=== PATIENT | female | born 1990 | race Caucasian/White ===

== ENCOUNTER 2020-06-05 08:11 | Outpatient (CLI) | payer OTHER ==
[2020-06-05 17:33] LABS: SARS-CoV-2 MS2 Positive; SARS-CoV-2 N Gene Negative; SARS-CoV-2 S Gene Negative; SARS-CoV-2 by NAA Not Detected (NotDetected); SARS-CoV-2 orf1ab Negative
== END 2020-06-05 08:12 | disposition home or self-care (01) ==
LOC: LABBT 08:11
PROVIDERS: ATTEND Obstetrics & Gynecology
DX: Z20.828 Contact with and (suspected) exposure to other viral communicable diseases (principal)
CPT/HCPCS: 87635; U0003

== ENCOUNTER 2020-06-08 14:45 | Inpatient (IN) | payer OTHER ==
[2020-06-08] MEDS ORDERED: Bupivacaine 0.25% HCL 30 ML VIAL ONE (15:19)
[2020-06-08] MEDS ORDERED: NS / Oxytocin 40 units/1000ml 1,000 ML IV PRN (19:59)
[2020-06-08] MEDS ORDERED: Ibuprofen 800 MG TAB PO PRN (19:59)
[2020-06-08] MEDS ORDERED: Promethazine HCl 25 MG/ML VIAL IM PRN (19:59)
[2020-06-08] MEDS ORDERED: Docusate 100 MG CAP PO PRN (19:59)
[2020-06-08] MEDS ORDERED: Lidocaine 1% (PF) 30 ML VIAL SC PRN (19:59)
[2020-06-08] MEDS ORDERED: hydrALAZINE 20 MG/ML VIAL SLOW IVP PRN (19:59)
[2020-06-08] MEDS ORDERED: Acetaminophen 500 MG TAB PO PRN (19:59)
[2020-06-08] MEDS ORDERED: HYDROcodone/Acetaminophen 5/325 mg Tablet PO PRN ×2 (19:59)
[2020-06-08] MEDS ORDERED: Ondansetron PF 4 MG/2 ML Vial IVP PRN (19:59)
[2020-06-08] MEDS ORDERED: Misoprostol 200 MCG TAB PR PRN (19:59)
[2020-06-08] MEDS ORDERED: Zolpidem Tartrate 5 MG TAB PO PRN (19:59)
[2020-06-08] MEDS ORDERED: Butorphanol Tartrate 1 MG/ML VIAL SLOW IVP PRN (19:59)
[2020-06-08] MEDS ORDERED: Diphenoxylate HCl/Atropine Tablet PO PRN ×2 (19:59)
[2020-06-08] MEDS ORDERED: NS w/ Oxytocin 10 units 500 ML IV SCH (20:15)
[2020-06-08] MEDS ORDERED: Penicillin G Potassium 5 MILL.UNITS in Sodium Chloride 0.9% 100 ML IVPB SCH (20:30)
[2020-06-08 20:38] VITALS: BMI 26.3
[2020-06-08 20:50] LABS: Mean Corpuscular HGB CONC 34.8 g/dL (32.0-36.0); Mean Corpuscular Hemoglobin 31.4 pg (27.0-31.0); Mean Corpuscular Volume 90.2 fL (78.0-98.0); Platelet Count 159 thou/uL (130-400); RBC Distribution Width 13.1 % (11.5-14.5); Red Blood Cell (RBC) Count 3.82 mill/uL (4.20-5.40); White Blood Cell (WBC) Count 11.7 thou/uL (4.8-10.8)
[2020-06-08] MEDS: Lactated Ringer's 1,000 ML IV SCH (20:55)
[2020-06-08] MEDS: Misoprostol 100 MCG TAB VAG SCH (20:55)
[2020-06-08 21:28] LABS: Syphilis Antibody Nonreactive (Nonreactive); Syphilis Antibody Index 0.04 S/CO (<1.00 Non-Reactive)
[2020-06-08 22:42] LABS: HBSAg Index 0.15 S/CO (0-0.99); Hep B Surf Ag Non-Reactive S/CO (NonReactive)
[2020-06-09] MEDS: Penicillin G 2.5 MILL.units 2.5 MILL.UNITS in Premix Bag 1 BAG IVPB SCH ×6 (01:07→22:32)
[2020-06-09] MEDS: Lactated Ringer's 1,000 ML IV SCH ×3 (02:41→12:23)
[2020-06-09] MEDS: Misoprostol 100 MCG TAB VAG SCH ×3 (04:25→22:31)
[2020-06-09] MEDS: NS w/ Oxytocin 10 units 500 ML IV SCH ×2 (08:22→22:32)
[2020-06-09] MEDS ORDERED: Fentanyl 4 mcg/Bup 0.1% Cadd 100 ML ONE ×2 (09:30→17:03)
[2020-06-09] MEDS ORDERED: diphenhydrAMINE 50 MG/ML VIAL IVP PRN (10:09)
[2020-06-09] MEDS ORDERED: EPHEDRINE 25 MG/5 ML SYRINGE SLOW IVP PRN (10:09)
[2020-06-09] MEDS ORDERED: Naloxone HCl 0.4 mg/ml Vial IVP PRN ×2 (10:09)
[2020-06-09] MEDS ORDERED: Acetaminophen 325 MG TAB PO PRN (10:09)
[2020-06-09] MEDS ORDERED: Lactated Ringer's 500 ML IV PRN (10:09)
[2020-06-09] MEDS ORDERED: Promethazine HCl 25 MG/ML VIAL IM PRN (10:09)
[2020-06-09] MEDS ORDERED: Ondansetron PF 4 MG/2 ML Vial IVP PRN ×2 (10:09→18:59)
[2020-06-09] MEDS ORDERED: Communication Order-Pharmacy FS SCH (10:15)
[2020-06-09] MEDS ORDERED: Fentanyl 4 mcg/Bupivacaine 0.1% Cassette 100 ML EPIDURAL SCH (10:15)
[2020-06-09] MEDS ORDERED: NS / Oxytocin 40 units/1000ml 1,000 ML ONE (16:20)
[2020-06-09] MEDS ORDERED: Lidocaine 1% (PF) 30 ML VIAL ONE (16:20)
[2020-06-09] MEDS ORDERED: Preparation H Ointment 28 GM TUBE PR PRN (18:59)
[2020-06-09] MEDS ORDERED: Zolpidem Tartrate 5 MG TAB PO PRN (18:59)
[2020-06-09] MEDS ORDERED: Bisacodyl 10 MG SUPP PR PRN (18:59)
[2020-06-09] MEDS ORDERED: HYDROcodone/Acetaminophen 5/325 mg Tablet PO PRN ×2 (18:59)
[2020-06-09] MEDS ORDERED: Milk Of Magnesia 30 ML UDCUP PO PRN (18:59)
[2020-06-09] MEDS ORDERED: diphenhydrAMINE 25 MG CAP PO PRN (18:59)
[2020-06-09] MEDS ORDERED: hydrALAZINE 20 MG/ML VIAL SLOW IVP PRN (18:59)
[2020-06-09] MEDS ORDERED: Benzocaine-Menthol 82.5 ML CAN TOP PRN (18:59)
[2020-06-09] MEDS ORDERED: Lanolin Ointment 7 GM TUBE TOP PRN (18:59)
[2020-06-09] MEDS ORDERED: Misoprostol 200 MCG TAB VAG PRN (18:59)
[2020-06-09] MEDS ORDERED: NS / Oxytocin 40 units/1000ml 1,000 ML IV SCH (19:00)
[2020-06-09] MEDS: Docusate Calcium (SURFAK) 240 MG CAP PO SCH (22:32)
[2020-06-09] MEDS: Ibuprofen 800 MG TAB PO SCH (22:54)
[2020-06-10] MEDS: Ibuprofen 800 MG TAB PO SCH ×3 (05:24→21:10)
[2020-06-10 07:28] LABS: Hemoglobin 10.2 g/dL (12.0-16.0); Mean Corpuscular HGB CONC 33.5 g/dL (32.0-36.0); Mean Corpuscular Hemoglobin 31.2 pg (27.0-31.0); Mean Corpuscular Volume 93.1 fL (78.0-98.0); Mean Platelet Volume 8.8 fL (7.4-10.4); Platelet Count 138 thou/uL (130-400); RBC Distribution Width 13.2 % (11.5-14.5); Red Blood Cell (RBC) Count 3.28 mill/uL (4.20-5.40); White Blood Cell (WBC) Count 16.4 thou/uL (4.8-10.8)
[2020-06-10] MEDS: Ferrous Sulfate 325 MG TAB PO SCH ×2 (08:13→16:29)
[2020-06-10] MEDS ORDERED: Adacel (T-DAP) 0.5 ML SYRINGE IM ONE (09:00)
[2020-06-10] MEDS: Prenatal Vitamin 1 TAB PO SCH (09:06)
[2020-06-10] MEDS: Docusate Calcium (SURFAK) 240 MG CAP PO SCH ×2 (09:06→21:10)
[2020-06-11] MEDS: Ibuprofen 800 MG TAB PO SCH ×2 (05:59→13:35)
[2020-06-11 08:16] VITALS: BP 118/64; TEMP 97.3
[2020-06-11] MEDS: Ferrous Sulfate 325 MG TAB PO SCH (08:56)
[2020-06-11] MEDS: Docusate Calcium (SURFAK) 240 MG CAP PO SCH (08:56)
[2020-06-11] MEDS: Prenatal Vitamin 1 TAB PO SCH (08:56)
== END 2020-06-11 17:00 | disposition home or self-care (01) | DRG 806 ==
LOC: L&D 19:44 → 3SW 06-09 21:42 → EDSTATUS 06-28 14:44
PROVIDERS: ADMIT Obstetrics & Gynecology; ATTEND Obstetrics & Gynecology
PROC: 10907ZC Drainage of Amniotic Fluid, Therapeutic from Products of Conception, Via Natural or Artificial Opening (ICD-10-PCS; 2020-06-08)
PROC: 3E0P7VZ Introduction of Hormone into Female Reproductive, Via Natural or Artificial Opening (ICD-10-PCS; 2020-06-08)
PROC: 10E0XZZ Delivery of Products of Conception, External Approach (ICD-10-PCS; 2020-06-08)
PROC: 10E0XZZ Delivery of Products of Conception, External Approach (ICD-10-PCS; principal; 2020-06-09)
PROC: 0W8NXZZ Division of Female Perineum, External Approach (ICD-10-PCS; 2020-06-09)
PROC: 0UQMXZZ Repair Vulva, External Approach (ICD-10-PCS; 2020-06-09)
DX: O99.824 Streptococcus B carrier state complicating childbirth (principal); O98.52 Other viral diseases complicating childbirth; Z3A.40 40 weeks gestation of pregnancy; Z37.0 Single live birth; Z20.828 Contact with and (suspected) exposure to other viral communicable diseases; B00.9 Herpesviral infection, unspecified; Z79.899 Other long term (current) drug therapy; Z88.2 Allergy status to sulfonamides; O72.1 Other immediate postpartum hemorrhage; O71.82 Other specified trauma to perineum and vulva
CPT/HCPCS: 36415; 51702; 85027; 86780; 86850; 86900; 86901; 87340; 87635; J2001; J2540; J2590; J3490; S0020; U0003